=== PATIENT | male | born 1985 | race African-American/Black ===

== ENCOUNTER 2019-11-27 10:10 | Emergency (ER) | payer OTHER ==
[2019-11-27 10:22] VITALS: BP 111/73; PULSE 96; TEMP 99.3; BMI 33.1
[2019-11-27] MEDS ORDERED: ACETAMINOPHEN 1000 MG/100 ML VIAL (NON FORMULARY) IVPB ONE (10:37)
[2019-11-27] MEDS ORDERED: SODIUM CHLORIDE 1,000 ML IV STA (10:37)
[2019-11-27] MEDS ORDERED: CLINDAMYCIN 600MG PREMIX IVPB 600 MG/50 ML BAG IVPB ONE ×2 (10:41→11:15)
[2019-11-27] MEDS ORDERED: ACETAMINOPHEN INJECTION 100 ML IVPB ONE (11:14)
--- NOTE | 2019-11-27 12:00 | PDOC ---
History of Present Illness - General Chief Complaint: Edema Stated Complaint: REFERED BY PCP Time Seen by Provider: 11/27/19 10:36 History Source: Patient Exam Limitations: No Limitations - History of Present Illness Initial Comments: 11/27/19 11:59 34-year-old male presents to ED with 2 days of under chin swelling now with discomfort. Patient states initially had a pimple and had his girlfriend squeezed it yesterday and then this morning area became more swollen and tender. Patient denies medical history including diabetes. Patient also states did have a temperature of 101 last night and no meds were taken . Patient went to urgent care clinic which referred him here for further evaluation. Is this a multiple visit Asthma Patient?: No Timing/Duration: constant, getting worse Severity: mild, moderate Past History - Travel History Traveled outside of the country in the last 30 days: No - Medical History Allergies/Adverse Reactions: Allergies Allergy/AdvReac Type Severity Reaction Status Date / Time Penicillins Allergy Verified 11/27/19 10:19 Home Medications: Ambulatory Orders Omeprazole Magnesium [Prilosec Otc] 20 mg PO DAILY PRN 11/27/19 COPD: No GI Disorders: Yes (GERD) - Immunization History Immunization Up to Date: No - Psycho-Social/Smoking History Patient Lives Alone: No Lives with/in: spouse/SO Smoking History: Never smoked Have you smoked in the past 12 months: Yes Information on smoking cessation initiated: No - Substance Abuse Hx (Audit-C & DAST Scrn) How often the patient has a drink containing alcohol: Never Score: In Men: 4 or > Positive; In Women: 3 or > Positive: 0 Screen Result (Pos requires Nsg. Audit-10AR): Negative In the last yr the pt used illegal drug/Rx for NonMed reason: Yes Score: Yes response is considered Positive: 1 Screen Result (Positive result requires Nsg. DAST-10): Positive Review of Systems - Review of Systems Able to Perform ROS?: Yes Constitutional: Yes: Chills, Fever HEENTM: Yes: Throat Pain Respiratory: No: Symptoms reported Cardiac (ROS): No: Symptoms Reported ABD/GI: No: Symptoms Reported : No: Symptoms Reported Musculoskeletal: Yes: Neck Pain Integumentary: Yes: Lumps Neurological: No: Symptoms reported Endocrine: No: Symptoms Reported Hematologic/Lymphatic: No: Symptoms Reported *Physical Exam - Vital Signs Last Vital Signs Temp Pulse Resp BP Pulse Ox 99.3 F 96 H 20 111/73 100 11/27/19 10:20 11/27/19 10:20 11/27/19 10:20 11/27/19 10:20 11/27/19 10:20 - Physical Exam General Appearance: Yes: Nourished, Appropriately Dressed. No: Apparent Distress HEENT: positive: EOMI. negative: Pale Conjunctivae Neck: positive: Supple. negative: Decreased range of motion Respiratory/Chest: positive: Lungs Clear, Normal Breath Sounds. negative: Respiratory Distress, Accessory Muscle Use Cardiovascular: positive: Regular Rhythm, Regular Rate. negative: Murmur Integumentary: positive: Other (noted 4 x 5 inch tender mass below the mandible and above the throid. No palpable fluctulance or drainage. Area warm to touch) Neurologic: positive: Motor Strength 5/5 (ambulatory) ED Treatment Course - LABORATORY CBC & Chemistry Diagram: 11/27/19 11:00 11/27/19 11:00 - RADIOLOGY Radiology Studies Ordered: Category Date Time Status SOFT TISSUE NECK CT WITH CONTR [CT] Stat CT Scan 11/27/19 10:37 Ordered Medical Decision Making - Medical Decision Making 11/27/19 11:02 CC: pimple now with swelling and fever under chin Exam: warm tender mass below mandible, surrounding skin intact Plan: labs, ivf, clinda (PCN allergy) iv tylenol 11/27/19 13:12 Patient's labs still pending. Patient does not feel comfortable being in the hospital and is requesting to leave. Explained to patient a CAT scan is necessary to determine the size depth and extent of the neck mass. Patient did receive IV antibiotics clindamycin 600 mg I have explained to patient by leaving he is assuming his medical care and if untreated may lead to . Patient fully understands and takes responsibility of his care. Patient is AO x3 and is sober. Patient signed the AMA form IV will be removed clindamycin will be sent to his pharmacy. Patient understands he may return at any given time if symptoms worsen but will give supportive care instructions and antibiotics upon discharge. Discharge - Discharge Information Problems reviewed: Yes Clinical Impression/Diagnosis: Neck mass Condition: Good Disposition: AGAINST MEDICAL ADVICE - Follow up/Referral - Patient Discharge Instructions Patient Printed Discharge Instructions: DI for Skin Abscess Additional Instructions: . Please continue clindamycin starting tonight since you were given a double dose here in the ER this morning. Apply warm compresses to area or a hot shower 4 times a day for 15 minutes of constant heat If symptoms worsen please return to the nearest ER including [facility]. - Post Discharge Activity Work/Back to School Note: Back to Work
[2019-11-27 13:14] LABS: BASO % 0.6 % (0-2.0); EOS % 0.4 % (0-4.5); HEMOGLOBIN 15.5 GM/dL (11.7-16.9); LYMPH % 16.5 % (8-40); MCH 28.3 pg (25.7-33.7); MCHC 33.6 g/dl (32.0-35.9); MEAN CELL VOLUME 84.1 fl (80-96); MEAN PLT VOLUME 8.3 fl (7.5-11.1); MONO % 7.2 % (3.8-10.2); NEUT % 75.3 % (42.8-82.8); PLATELET COUNT 241 K/MM3 (134-434); RBC 5.47 M/mm3 (4.00-5.60); RDW 14.9 % (11.9-15.9); WHITE BLOOD COUNT 7.4 K/mm3 (4.0-10.0)
[2019-11-27 13:37] LABS: ALBUMIN 3.9 g/dl (3.4-5.0); BILIRUBIN,TOTAL 0.6 mg/dL (0.2-1); BLOOD UREA NITROGEN 13.2 mg/dL (7-18); CALCIUM 8.9 mg/dL (8.5-10.1); CREATININE 1.2 mg/dL (0.55-1.3); POTASSIUM 3.7 mmol/L (3.5-5.1); TOT PROT 7.7 g/dl (6.4-8.2)
== END 2019-11-27 13:33 | disposition left against medical advice (07) ==
LOC: JER 10:10
PROC: 3E03329 Introduction of Other Anti-infective into Peripheral Vein, Percutaneous Approach (ICD-10-PCS; principal; 2019-11-27)
PROC: 3E033GC Introduction of Other Therapeutic Substance into Peripheral Vein, Percutaneous Approach (ICD-10-PCS; 2019-11-27)
PROC: 3E0337Z Introduction of Electrolytic and Water Balance Substance into Peripheral Vein, Percutaneous Approach (ICD-10-PCS; 2019-11-27)
DX: R22.1 Localized swelling, mass and lump, neck (principal)
CPT/HCPCS: 36415; 80053; 83605; 85025; 87040; 99284-25; J0131

== ENCOUNTER 2021-01-23 20:09 | Emergency (ER) | payer OTHER ==
[2021-01-23 20:13] VITALS: BP 127/74; PULSE 78; TEMP 98; BMI 33.7
[2021-01-23] MEDS ORDERED: KETOROLAC TROMETHAMINE 30 MG/1 ML VIAL IVPUSH ONE (20:30)
[2021-01-23] MEDS ORDERED: KETOROLAC TROMETHAMINE 30 MG/1 ML VIAL ONE (20:32)
[2021-01-23 20:49] LABS: BASO % 0.8 % (0-2.0); EOS % 0.4 % (0-4.5); HEMATOCRIT 43.5 % (35.4-49); HEMOGLOBIN 14.6 GM/dl (11.7-16.9); MCH 28.3 pg (25.7-33.7); MCHC 33.7 g/dl (32.0-35.9); MEAN PLT VOLUME 7.6 fl (7.5-11.1); MONO % 9.9 % (3.8-10.2); NEUT % 60.9 % (42.8-82.8); PLATELET COUNT 223 10^3/uL (134-434); RBC 5.18 M/mm3 (4.00-5.60); RDW 13.6 % (11.9-15.9); WHITE BLOOD COUNT 5.1 K/mm3 (4.0-10.8)
[2021-01-23 21:01] LABS: ALK PHOS 57 U/L (45-117); ANION GAP 9 MMOL/L (8-16); BILIRUBIN,TOTAL 0.6 mg/dl (0.2-1); CALCIUM 8.7 mg/dl (8.5-10); CHLORIDE 100 mmol/L (98-107); CO2 27 mmol/L (21-32); CREATININE 1.1 mg/dl (0.55-1.3); GLUCOSE,RANDOM 87 mg/dl (74-106); SGOT/AST 24 U/L (15-37); SGPT/ALT 36 U/L (13-61); SODIUM 136 mmol/L (136-145); TOT PROT 6.8 g/dl (6.4-8.2)
== END 2021-01-23 21:42 | disposition home or self-care (01) ==
LOC: FER 20:09
PROC: 3E0333Z Introduction of Anti-inflammatory into Peripheral Vein, Percutaneous Approach (ICD-10-PCS; principal; 2021-01-23)
DX: R07.89 Other chest pain (principal)
CPT/HCPCS: 36415; 71046-TC-FY; 80053; 82550; 82553; 84484; 85025; 93005; 99285-25